=== PATIENT | male | born 1970 | race Caucasian/White ===

== ENCOUNTER 2020-01-05 14:11 | Emergency (ER) | payer OTHER, SELFPAY ==
--- NOTE | ~2020-01-05 | XR_ITS ---
EXAMINATION: XR ankle RT 2V INDICATION: Right lateral ankle pain TECHNIQUE: Two views of the right ankle are obtained. COMPARISON: 01/08/2017 FINDINGS: Mild osseous irregularity of the medial malleolus is chronic and consistent with prior inju ry. No acute fracture, dislocation, or subluxation is identified. Bone alignment is normal. The soft tissues are unremarkable. IMPRESSION: 1. No acute osseous abnormality. Reviewed, dictated and finalized at location A.
[2020-01-05 14:26] VITALS: BP 185/114; PULSE 105; RESP 14; TEMP 37.2; O2SAT 96
[2020-01-05] MEDS: KETOROLAC (*BKC) 60 MG/2 ML VIAL IM (14:39)
--- NOTE | 2020-01-05 14:52 | ED.LOWEXIN ---
HPI - Extremity Injury (Lower) General Chief Complaint: Extremity Injury, Lower Stated Complaint: injury to r ankle Source: patient Mode of arrival: ambulatory Limitations: no limitations History of Present Illness HPI Narrative: this is a 49-year-old male that presents with right ankle pain with swelling in the lateral aspect of his right ankle with mildly decreased range of motion secondary to swelling and pain. Occurred about an hour to ago after he stepped in a ditch in heard a pop in his right ankle. There is no numbness or tingling has a good brisk pedal pulse on the right. MD complaint: ankle injury Onset (ago): hour(s) Injury: Right: ankle ( with swelling and decreased range of motion) Type of Injury: inversion Place: street/outdoors Severity: moderate Severity scale (1-10): 6 Relieving factors: immobilization Exacerbating factors: movement and palpation Context: other ( stepped in a ditch) Associated symptoms: snap/pop sensation Other symptoms: none Related Data Allergies Allergy/AdvReac Type Severity Reaction Status Date / Time No Known Allergies Allergy Verified 01/05/20 14:33 Review of Systems Review of Systems: All systems reviewed & are unremarkable except as noted in HPI and below PMFSH Past Medical History Medical History Patient denies medical problems Exam Const: General: no acute distress and alert Orientation/consciousness: patient oriented x3 HENMT: Head: normal to inspection Eyes: Visual Thorne: normal visual thorne by confrontation Conjunctivae: conjunctivae normal Pupils: Equal, round and reactive pupils present EOM: EOMs intact bilaterally Neck: Neck: normal visual inspection Chest: Chest palpation & inspection: normal inspection of the chest Resp: Effort & Inspection: normal respiratory effort Auscultation: clear to auscultation bilaterally Cardio: Rate: regular rate Rhythm: regular rhythm GI: GI Palp: Yes Soft to palpation Back/Spine/Pelvis: Back: no CVA tenderness Skin: General skin exam: normal color Rashes: no rashes Neuro: General: patient oriented x3 and moves all extremities Extrem: General: normal to inspection Psych: Mental Status: mental status grossly normal Course Course Emergency Course: reassessment of pain, has decreased after IM injection of Toradol informed patient that there was no fracture and sprain of his right ankle and Ron wrap was applied. Vital Signs Vital signs: Vital Signs Temperature 37.2 C 01/05/20 14:26 Pulse Rate 105 H 01/05/20 14:26 Respiratory Rate 14 01/05/20 14:26 Blood Pressure 185/114 H 01/05/20 14:26 Pulse Oximetry 96 01/05/20 14:26 Temperature 37.2 C 01/05/20 14:26 Pulse Rate 105 H 01/05/20 14:26 Respiratory Rate 14 01/05/20 14:26 Blood Pressure 185/114 H 01/05/20 14:26 Pulse Oximetry 96 01/05/20 14:26 Critical Care Time Critical Care Time Critical Care Time: No Discharge Plan Discharge Clinical Impression: Ankle sprain and strain Patient Disposition: Home, Self-Care Condition: Stable Instructions: Antibiotic Form Additional Instructions: Follow-up with primary care physician in 1 week if symptoms persist. take medicine as prescribed. Prescriptions: New naproxen 500 mg tablet 500 mg PO BID Qty: 20 RF: 0 Follow-up/Referrals: Matty Avery MD [Primary Care Provider] - Time of Disposition: 14:56
[2020-01-05 15:30] VITALS: BP 163/102; O2SAT 98
== END 2020-01-05 15:25 | disposition home or self-care (01) ==
PROVIDERS: Emergency Provider Emergency Medicine; PCP Internal Medicine
DX: S93.401A Sprain of unspecified ligament of right ankle, initial encounter (principal)
CPT/HCPCS: 73600; 96372; 99283; J1885

== ENCOUNTER 2020-05-31 15:24 | Outpatient (CLI) | payer OTHER, SELFPAY ==
[2020-05-31 15:36] LABS: Basophils Absolute Auto 0.07 K/mm3 (0.00-0.10); Basophils Percent Auto 0.8 % (0.0-1.0); Eosinophils Absolute Auto 0.82 K/mm3 (0.02-0.50); Eosinophils Percent Auto 9.4 % (1.0-6.0); Hematocrit 45.6 % (40.0-54.0); Hemoglobin 15.3 g/dL (14.0-18.0); Immature Granulocyte Absolute 0.04 K/mm3 (0.00-0.00); Immature Granulocyte Percent A 0.5 % (0.0-0.0); Lymphocytes Percent Auto 22.9 % (18.0-42.0); Mean Corpuscular HGB Conc 33.6 g/dL (32.0-36.0); Mean Corpuscular Hemoglobin 29.8 pg (27.0-31.0); Mean Corpuscular Volume 88.7 fL (78.0-102.0); Mean Platelet Volume 8.8 fl (8.7-11.0); Monocytes Absolute Auto 0.65 K/mm3 (0.10-0.90); Monocytes Percent Auto 7.4 % (2.0-11.0); Neutrophils Absolute Auto 5.2 K/mm3 (1.7-7.2); Platelet Count Result 393 K/mm3 (150-420); Red Blood Count 5.14 M/mm3 (4.70-6.10); Red Cell Distribution Width 13.8 % (11.6-14.4); White Blood Count 8.7 K/mm3 (4.8-10.8)
[2020-05-31 15:37] LABS: Add Urine Microscopic? YES; Appearance Urine Clear (Clear); Bilirubin Urine Negative (Negative); Blood Urine 1+ (Negative); Color Urine Yellow (Yellow); Glucose Urine UA Negative (Negative); Ketones Urine Negative (Negative); Leukocyte Esterase Ur Negative (Negative); Nitrate Urine Negative (Negative); Protein Urine Negative (Negative); Urobilinogen Urine 0.2 mg/dL (0.2-1.0)
[2020-05-31 15:49] LABS: Bacteria Urine Trace /hpf; Squamous Epithelial Cell Urine Few /hpf (Few); WBC Urine None seen /hpf (0-3)
[2020-05-31 17:05] LABS: Alanine Aminotransferase 23 U/L (16-63); Albumin Level 4.1 g/dL (3.4-5.0); Alkaline Phosphatase 63 U/L (46-116); Anion Gap 6 mmol/L (8-16); Aspartate Amino Transferase 18 U/L (15-37); Bilirubin,Total 0.3 mg/dL (0.00-1.00); Blood Urea Nitrogen 15 mg/dL (7-18); Calcium 9.6 mg/dL (8.5-10.1); Carbon Dioxide 32 mmol/L (21-32); Chloride 100 mmol/L (98-108); Cholesterol 396 mg/dL (0-200); Estimated Glomerular Filt Rate > 60; Glucose 129 mg/dL (70-99); HDL Direct 32 mg/dL (40-60); Osmolality Calculated 288 mOsm/kg (285-295); Potassium 4.1 mmol/L (3.5-5.1); Sodium 138 mmol/L (136-145); Thyroid Stimulating Hormone 0.85 uIU/mL (0.36-3.74); Total Protein 7.5 g/dL (6.4-8.2)
[2020-05-31 17:15] LABS: LDL Cholesterol Calculated 171 mg/dL (<130); Triglycerides 965 mg/dL (0-150)
[2020-05-31 17:18] LABS: LDL Cholesterol Direct 146 mg/dL (0-130)
== END 2020-05-31 15:25 | disposition home or self-care (01) ==
LOC: CHSLAB 15:26
PROVIDERS: PCP Internal Medicine; Visit Provider Internal Medicine
DX: E78.5 Hyperlipidemia, unspecified (principal); I10 Essential (primary) hypertension
CPT/HCPCS: 36415; 80053; 80061; 81001; 83721; 84443; 85025

== ENCOUNTER 2020-06-15 16:05 | Outpatient (CLI) | payer OTHER, SELFPAY ==
--- NOTE | ~2020-06-15 | XR_ITS ---
XR lumbar spine 2-3V DATE: 06/15/2020 16:21 INDICATION: Chronic low back pain, radiating to right leg, increasing in severity TECHNIQUE: AP, lateral, coned lateral lumbosacral views COMPARISON: 08/29/2016 lumbar spine FINDINGS: There is diffuse osteopenia. Normal alignment of the lumbar spine. No fracture or bone destruction is evident. The included lower thoracic and lumbar pedicles are intact. There is degenerative spurring of the lower thoracic spine at T9-10 and T10-11. There is minimal dege nerative spurring of the lumbar spine. Lumbar and lumbosacral interspaces are relatively preserved. The sacroiliac joints are intact. Abdominal aortic calcification. 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
== END 2020-06-15 16:06 | disposition home or self-care (01) ==
PROVIDERS: PCP Internal Medicine; Visit Provider Internal Medicine
DX: M54.9 Dorsalgia, unspecified (principal)
CPT/HCPCS: 72100

== ENCOUNTER 2020-07-16 10:16 | Outpatient (CLI) | payer OTHER, SELFPAY ==
--- NOTE | ~2020-07-16 | CT_ITS ---
EXAMINATION: CT abdomen pelvis wo/w con EXAM DATE: 07/16/2020 11:16 INDICATION: Left renal cell CA s/p partial nephrectomy 2016 recent micro hematuria. TECHNIQUE: Spiral CT of the abdomen was performed without contrast. The patient was then injected wi th 100 mL intravenous Omnipaque 350, followed by post contrast scan abdomen and pelvis. A total of 10 0 cc intravenous contrast was administered. The dose-length product (DLP) for this examination was 1 361.73 mGy-cm. The exposure was tailored according to patient size (auto mA exposure control), and i terative reconstruction (ASIR) was used as additional dose reduction technique. Comparison is made to prior examination from 06/15/2015. FINDINGS: There are approximately 5 punctate right calyceal stones, and a single punctate left calyce al stone identified on the noncontrast study. There is mild left renal atrophy and there is scarring along the posterior lateral cortex at prior surgical site. This region of low density scarring is dec rease in size compared to previous exam, measuring 1.4 cm versus 2.0 centimeters on prior study. No f indings to suggest recurrence. The kidneys enhance symmetrically. There is a right renal cyst measur ing 4.5 cm. There are no suspicious renal lesions. The calyces and opacified portions of ureters are unremarkable, without filling defects or focal suspicious strictures. The bladder is unremarkable. There is mild prostatomegaly. The liver, spleen, adrenal glands and pancreas are unremarkable. Gallbladder is unremarkable. No bi liary obstruction. There is no retroperitoneal or pelvic lymphadenopathy. There is moderate scatte red arteriosclerotic disease. Small umbilical fat-containing hernia. Right lower quadrant scarring, c ould be prior ostomy site given patulous right lower quadrant ileal anastomosis. The appendix is normal. There is small sliding gastroesophageal hiatal hernia. There is mild sigmoid colonic diverticulosis. There is no adjacent inflammatory change to suggest diverticulitis. There i s expected amount of colonic stool. No free intraperitoneal gas. The heart is normal in size. Th ere are no pericardial or pleural effusions. The lung bases are unremarkable. Small sacral, L4 scle rotic foci are unchanged, likely bone islands. IMPRESSION: 1. Left renal cortical scarring. Mild atrophy. 2. Punctate bilateral nephrolithiasis. 3. Mild prostatomegaly. Reviewed, dictated and finalized at location A. [employer]
[2020-07-16 10:39] LABS: Estimated Glomerular Filt Rate > 60
== END 2020-07-16 10:17 | disposition home or self-care (01) ==
LOC: CHSIMG 10:19
PROVIDERS: PCP Internal Medicine; Visit Provider Internal Medicine
DX: C64.2 Malignant neoplasm of left kidney, except renal pelvis (principal)
CPT/HCPCS: 74178; Q9967

== ENCOUNTER 2020-11-25 21:07 | Emergency (ER) | payer OTHER, SELFPAY ==
[2020-11-25 21:19] VITALS: BP 208/113; PULSE 95; RESP 20; TEMP 36.7; O2SAT 100
[2020-11-25] MEDS: KETOROLAC (*BKC) 60 MG/2 ML VIAL IM (21:38)
[2020-11-25] MEDS: SUMAtriptan SUCCINATE 6 MG/0.5 ML VIAL SUB-Q (21:38)
[2020-11-25] MEDS: DEXAMETHASONE SOD PHOS INJ 4 MG/ML VIAL 12 MG IM (21:44)
--- NOTE | 2020-11-25 22:12 | ED.EYEPROB ---
HPI - Eye Problem General Chief complaint: Eye Problems Stated complaint: rt eye pain Time Seen by Provider: 11/25/20 21:25 Source: patient Mode of arrival: ambulatory Limitations: no limitations History of Present Illness HPI Narrative: Patient comes in with complaint of acute eye pain, a burning or stabbing in the right eye. This started yesterday pm, and has been ongoing today, becoming worse tonight in pain severity now /10. Vision has not been as clear in that eye as the left. He has had continual tearing and a runny nose. He has admitted to rubbing his eye. He had an episode today of diaphoresis prior to the onset of more acute severe eye pain. NO nausea, no emesis, no halos around lights, no severe clouding or hazing of vision. He has had ptosis on that side today, which is new, he states MD chief complaint: eye pain Onset (ago): hour(s) Onset description: sudden Duration: constant Location: right eye Eye Symptoms: burning and redness Place: home Mechanism: none Severity: severe Severity scale (1-10): 7 If Pain, Quality: sharp and burning Associated symptoms: none Related Data Home Medications Medication Instructions Recorded Confirmed alprazolam 0.5 mg PO QID PRN 01/05/20 11/25/20 fluoxetine [Prozac] 80 mg PO DAILY 01/05/20 11/25/20 ropinirole [Requip] 0.25 - 0.5 mg PO HS 01/05/20 11/25/20 zolpidem [Ambien] 10 mg PO HS 01/05/20 11/25/20 hydroxyzine pamoate 50 mg PO HS 11/25/20 11/25/20 lisinopril [Zestril] 10 mg PO DAILY 11/25/20 11/25/20 Allergies Allergy/AdvReac Type Severity Reaction Status Date / Time No Known Allergies Allergy Verified 01/05/20 14:33 Review of Systems Constitutional: Constitutional: Reports no additional constitutional complaints Eyes: Eyes: Reports photophobia Comments: Blurred vision on right compared to left ENT: Reports system reviewed and no additional complaints, except as documented Cardiovascular: Cardiovascular: Reports no additional cardiovascular complaints Respiratory: Respiratory: Reports no additional respiratory complaints Gastrointestinal: Gastrointestinal: Reports no additional gastrointestinal complaints Genitourinary: Genitourinary: Reports no additional male genitourinary complaints Musculoskeletal: Musculoskeletal: Reports no additional musculoskeletal complaints Integumentary/Breasts: Skin/Breast: Reports system reviewed and no additional complaints, except as docu Neurologic: Reports system reviewed and no additional complaints, except as documented Psychiatric: Psychiatric: Reports no additional psychiatric complaints Endocrine: Endocrine: Reports no additional endocrine complaints Hematologic/Lymphatic: Hematologic/Lymphatic: Reports no additional hematologic/lymphatic complaints Allergic/Immunologic: Allergic/Immunologic: Reports no additional allergic/immunologic complaints PMFSH Past Medical History Medical History (Updated 11/25/20 @ 23:56 by Lan Wyatt MD) Anxiety Depression Hyperlipemia Hypertension Patient denies medical problems Surgical History Surgical History (Updated 11/25/20 @ 22:15 by Lan Wyatt MD) History of bowel diversion surgery Family History Family History (Updated 11/25/20 @ 22:16 by Lan Wyatt MD) Father Heart disease Diabetes mellitus Mother Breast cancer Hypertension Social History Social History (Updated 11/25/20 @ 22:16 by Lan Wyatt MD) Smoking status: Never smoker Alcohol intake: never Substance use: never Gender identity (if verbalized by the patient): Male Sexual Orientation (if Verbalized by the Patient): Straight or Heterosexual Exam Const: General: alert Orientation/consciousness: patient oriented x3 Other: appears uncomfortable HENMT: Ears: external ears normal and TM's normal bilaterally General nose exam: Normal external nose present Mouth: Yes Normal oral and palatal mucosa present Throat: posterior oropharynx normal Eyes: Other: Ri
--- NOTE | 2020-11-25 22:34 | PC.NURSE ---
2200 O2 10L PER NONREBREATER MASK APPLIED BY DR AGUILERA
[2020-11-25 23:45] VITALS: TEMP 37.1
[2020-11-25] MEDS: FLUORESCEIN SOD 1 MG/STRIP EACH EYE (23:45)
[2020-11-25] MEDS: TETRACAINE HCL 0.5% OPHTH SOLN 4 ML BTL 1 DROP EACH EYE (23:45)
[2020-11-25] MEDS: DACRIOSE EYE IRRIGATION 118 ML BOTTLE EACH EYE (23:55)
[2020-11-26] MEDS: ERYTHROMYCIN OPHTH OINTMENT 3.5 GM TUBE 1 APPLIC RIGHT EYE (00:11)
[2020-11-26 00:18] VITALS: BP 168/101; PULSE 87; RESP 20; TEMP 37.1; O2SAT 98
== END 2020-11-26 00:19 | disposition home or self-care (01) ==
PROVIDERS: Emergency Provider Emergency Medicine; PCP Internal Medicine
DX: G44.009 Cluster headache syndrome, unspecified, not intractable (principal); S05.01XA Injury of conjunctiva and corneal abrasion without foreign body, right eye, initial encounter
CPT/HCPCS: 96372; 99283; 99284; A9270; J1100; J1885; J3030

== ENCOUNTER 2021-07-23 17:45 | Outpatient (CLI) | payer OTHER, SELFPAY ==
[2021-07-23 18:08] LABS: Hemoglobin A1C 6.3 % (<5.7)
[2021-07-23 18:47] LABS: Alanine Aminotransferase 26 U/L (16-63); Albumin Level 4.6 g/dL (3.4-5.0); Alkaline Phosphatase 72 U/L (46-116); Anion Gap 14 mmol/L (8-16); Aspartate Amino Transferase 16 U/L (15-37); Bilirubin,Total 0.8 mg/dL (0.00-1.00); Blood Urea Nitrogen 21 mg/dL (7-18); Calcium 10.1 mg/dL (8.5-10.1); Carbon Dioxide 28 mmol/L (21-32); Chloride 98 mmol/L (98-108); Cholesterol 271 mg/dL (0-200); Estimated Glomerular Filt Rate 54; Glucose 108 mg/dL (70-99); HDL Direct 41 mg/dL (40-60); LDL Cholesterol Calculated 207 mg/dL (<130); Osmolality Calculated 294 mOsm/kg (285-295); Potassium 4.4 mmol/L (3.5-5.1); Sodium 140 mmol/L (136-145); Total Protein 8.1 g/dL (6.4-8.2); Triglycerides 115 mg/dL (0-150)
== END 2021-07-23 17:46 | disposition home or self-care (01) ==
LOC: CHSLAB 17:47
PROVIDERS: PCP Internal Medicine; Visit Provider Internal Medicine
DX: R73.03 Prediabetes (principal); E78.5 Hyperlipidemia, unspecified
CPT/HCPCS: 36415; 80053; 80061; 83036

== ENCOUNTER 2022-03-25 10:47 | Observation (INO) | payer OTHER, SELFPAY ==
[2022-03-25] VITALS (18 sets, daily range): BP systolic 121–199; BP diastolic 79–136; PULSE 72–103; RESP 16–20; TEMP 36.6–36.7; O2SAT 99–100
--- NOTE | ~2022-03-25 | CT_ITS ---
EXAMINATION: CT abdomen pelvis wo con DATE: 03/25/2022 11:36 INDICATION: Upper abdominal pain radiating to the back. TECHNIQUE: Computed tomography (CT) of the abdomen and pelvis was performed without intravenous contr ast. Automated exposure control and iterative reconstruction technique were employed. The dose-length product was 284.32 mGy-cm. COMPARISON: CT abdomen and pelvis 07/16/2020 FINDINGS: The visualized portions of the lung bases are clear without pneumonia or pleural effusion. The heart size is normal. No pericardial effusion. There are coronary artery calcifications. There is a small sliding hiatal hernia. The liver, gallbladder, and spleen are normal. There is fat stranding around the head of the pancreas, consistent with acute interstitial pancreatitis. The adrenal glands are normal. There are cysts in right kidney measuring up to 4.5 cm. There is a 2 mm stone in right k idney. There are changes of partial left nephrectomy. There are 1 mm and 2 mm stones in left kidney. The prostate is mildly enlarged. There are no dilated loops of bowel. The appendix is normal. There a re no pathologically enlarged lymph nodes. There is no free intraperitoneal fluid. There is mild thor acolumbar spondylosis. There is mild chronic anterior wedging of T11 and T12 vertebral bodies. There is a benign bone island in L4 vertebral body. IMPRESSION: 1. Acute interstitial pancreatitis. Reviewed, dictated and finalized at location A. 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
--- NOTE | 2022-03-25 11:05 | PC.NURSE ---
ERP AT BEDSIDE
[2022-03-25] MEDS: SODIUM CHLORIDE 0.9% IV 1,000 ML 999 ML IV CONT (11:25)
[2022-03-25] MEDS: ONDANSETRON INJ 4 MG/2 ML VIAL IV PUSH (11:27)
[2022-03-25] MEDS: PANTOPRAZOLE SODIUM IV 40 MG VIAL IV PUSH (11:28)
[2022-03-25] MEDS: MORPHINE SULFATE (*CRX) 4 MG/ML INJ 2 MG IV PUSH (11:28)
[2022-03-25 11:30] LABS: Basophils Absolute Auto 0.04 K/mm3 (0.00-0.10); Basophils Percent Auto 0.3 % (0.0-1.0); Eosinophils Absolute Auto 0.25 K/mm3 (0.02-0.50); Hematocrit 50.2 % (40.0-54.0); Hemoglobin 16.7 g/dL (14.0-18.0); Immature Granulocyte Absolute 0.05 K/mm3 (0.00-0.00); Immature Granulocyte Percent A 0.4 % (0.0-0.0); Lymphocytes Percent Auto 11.3 % (18.0-42.0); Mean Corpuscular HGB Conc 33.3 g/dL (32.0-36.0); Mean Corpuscular Hemoglobin 29.1 pg (27.0-31.0); Mean Corpuscular Volume 87.6 fL (78.0-102.0); Mean Platelet Volume 8.7 fl (8.7-11.0); Monocytes Absolute Auto 0.65 K/mm3 (0.10-0.90); Monocytes Percent Auto 5.2 % (2.0-11.0); Neutrophils Percent Auto 80.8 % (50.0-70.0); Platelet Count Result 459 K/mm3 (150-420); Red Blood Count 5.73 M/mm3 (4.70-6.10); Red Cell Distribution Width 12.8 % (11.6-14.4); White Blood Count 12.4 K/mm3 (4.8-10.8)
--- NOTE | 2022-03-25 11:31 | PC.NURSE ---
CLONIDINE HELD AT THIS TIME DUE TO BP 156/95
--- NOTE | 2022-03-25 11:43 | ED.ABDPAIN ---
HPI - Abdominal Pain General Chief Complaint: Abdominal Pain Stated Complaint: abd pain/back pain Time Seen by Provider: 03/25/22 10:51 Source: patient and RN notes reviewed Mode of arrival: ambulatory Limitations: no limitations History of Present Illness MD elicited complaint: abdominal pain Pertinent past history: other (pancreatitis) Onset (ago): day(s) (2) Pain Consistency: constant Location: epigastric Severity: moderate Pain scale (0-10): 7 Quality: cramping and aching Radiation: back Migration to: no migration Exacerbating factors: nothing Relieving factors: nothing Associated symptoms: nausea, vomiting and diarrhea Related Data Home Medications Medication Instructions Recorded Confirmed alprazolam 1 mg tablet 0.5 mg PO QID PRN Anxiety 01/05/20 03/25/22 fluoxetine 40 mg capsule (Prozac) 80 mg PO DAILY 01/05/20 03/25/22 zolpidem 10 mg tablet (Ambien) 10 mg PO HS 01/05/20 03/25/22 lisinopril 10 mg tablet (Zestril) 10 mg PO DAILY 11/25/20 03/25/22 Allergies Allergy/AdvReac Type Severity Reaction Status Date / Time No Known Allergies Allergy Verified 03/25/22 10:58 Review of Systems Review of Systems: All systems reviewed & are unremarkable except as noted in HPI and below Constitutional: Constitutional: Reports no additional constitutional complaints Eyes: Eyes: Reports no additional eye complaints ENT: Reports system reviewed and no additional complaints, except as documented Cardiovascular: Cardiovascular: Reports no additional cardiovascular complaints Respiratory: Respiratory: Reports no additional respiratory complaints Gastrointestinal: Gastrointestinal: Reports abdominal pain Musculoskeletal: Musculoskeletal: Reports no additional musculoskeletal complaints Integumentary/Breasts: Skin/Breast: Reports system reviewed and no additional complaints, except as docu Neurologic: Reports system reviewed and no additional complaints, except as documented Psychiatric: Psychiatric: Reports no additional psychiatric complaints Endocrine: Endocrine: Reports no additional endocrine complaints Hematologic/Lymphatic: Hematologic/Lymphatic: Reports no additional hematologic/lymphatic complaints Allergic/Immunologic: Allergic/Immunologic: Reports no additional allergic/immunologic complaints [facility] Past Medical History Medical History Anxiety Depression Hyperlipemia Hypertension Pancreatitis Patient denies medical problems Surgical History Surgical History History of bowel diversion surgery Family History Family History Father Heart disease Diabetes mellitus Mother Breast cancer Hypertension Social History Social History Smoking status: Never smoker Second hand tobacco smoke exposure: No Alcohol intake: never Substance use: current Substance use type: marijuana Has the Lack of Transportation Kept You From Medical Appointments or From Getting Medications?: No Within the Past 12 Months, Were You Worried Whether Your Food Would Run Out Before You Got Money to Buy More?: Never True What is Your Housing Situation Today?: I Have Housing Are You Worried That in the Next 2 Months, You May Not Have Your Own Housing to Live In?: No Do You Have Trouble Paying Your Heating Or Electricity Bill?: No Do You Have Trouble Paying For Medicines?: No Are You Currently Unemployed and Looking for Work?: No Highest Level of Education Completed: High School Diploma/GED Do You Have Trouble With Childcare or the Care of a Family Member?: No Gender identity (if verbalized by the patient): Male Sexual Orientation (if Verbalized by the Patient): Straight or Heterosexual Spiritual care concerns: No Exam Const: General: no acute distress Nutritional Appearanc
[2022-03-25 11:46] LABS: Alanine Aminotransferase 34 U/L (16-63); Albumin Level 3.7 g/dL (3.4-5.0); Alkaline Phosphatase 78 U/L (46-116); Anion Gap 4 mmol/L (8-16); Aspartate Amino Transferase 19 U/L (15-37); Bilirubin,Total 0.3 mg/dL (0.00-1.00); Blood Urea Nitrogen 11 mg/dL (7-18); Carbon Dioxide 33 mmol/L (21-32); Chloride 101 mmol/L (98-108); Estimated CRCL calculation 66 ml/min; Estimated Glomerular Filt Rate > 60; Glucose 151 mg/dL (70-99); Lipase 167 U/L (73-393); Osmolality Calculated 288 mOsm/kg (285-295); Sodium 138 mmol/L (136-145); Total Protein 8.3 g/dL (6.4-8.2)
[2022-03-25 11:47] LABS: Ethanol 3 mg/dL (0-6)
[2022-03-25 11:49] LABS: Appearance Urine Clear (Clear); Bilirubin Urine Negative (Negative); Blood Urine 1+ (Negative); Glucose Urine UA Negative (Negative); Ketones Urine Negative (Negative); Leukocyte Esterase Ur Negative LEU/UL (Negative); Nitrate Urine Negative (Negative); Protein Urine Negative (Negative); Urobilinogen Urine 0.2 mg/dL (0.2-1.0)
[2022-03-25 11:53] LABS: Lactic Acid Reflex 2.1 mmol/L (0.4-2.0)
[2022-03-25 11:55] LABS: Calcium 10.1 mg/dL (8.5-10.1)
[2022-03-25 12:01] LABS: Amphetamine Screen Urine Negative (Negative); Barbiturate Screen Urine Negative (Negative); Benzodiazepines Screen Urine Negative (Negative); Cannabinoid Screen Urine Positive (Negative); Cocaine Screen Urine Negative (Negative); Methadone Screen Urine Negative (Negative); Opiate Screen Urine Negative (Negative); Phencyclidine Screen Urine Negative (Negative)
[2022-03-25 12:02] LABS: Add Urine Microscopic? YES; Bacteria Urine Trace /hpf; Color Urine Light Yellow (Yellow); Squamous Epithelial Cell Urine Rare /hpf (Few); WBC Urine None seen /hpf (0-3)
[2022-03-25] MEDS: MORPHINE SULFATE (*CRX) 2 MG/ML INJ IV PUSH ×2 (12:22→14:20)
--- NOTE | 2022-03-25 12:28 | PC.NURSE ---
PT REPORTED MINIMAL PAIN RELIEF WITH MEDICATION, REMAINS RESTLESS. ERP WAS NOTIFIED AND ANOTHER DOSE OF MEDICATION WAS ADMINISTERED. MOTHER AT BEDSIDE. IVF INFUSING ORDERED WITHOUT DIFFICULTY. WILL CONTINUE TO MONITOR.
--- NOTE | 2022-03-25 12:42 | PC.NURSE ---
ERP IS AWARE OF BP IS ELEVATED AGAIN, HE IS TO RE ORDER THE CLONIDINE. WILL CONTINUE TO MONITOR. PT IS AWAITING RETURN CALL FROM [facility] AT THIS TIME.
[2022-03-25] MEDS: cloNIDine HCL 0.2 MG TABLET PO ×2 (13:18→14:45)
--- NOTE | 2022-03-25 13:34 | PC.NURSE ---
PT IS AWAITING RETURN CALL FROM [facility]ITAL[facility] AT THIS TIME. MOTHER AT BEDSIDE. PT AND MOTHER ARE AWARE OF PLAN OF CARE. WILL CONTINUE TO MONITOR.
--- NOTE | 2022-03-25 14:21 | PC.NURSE ---
PT HAS BEEN ACCEPTED AND IS TO BE ADMITTED TO 204. PT AND MOTHER ARE AWARE OF PLAN OF CARE. PT IS EXTREMELY UNCOMFORTABLE, MEDICATION ADMINISTERED. WILL CONTINUE TO MONITOR.
[2022-03-25 14:28] LABS: Reflex Lactic Acid Yes or No Add Lactic
[2022-03-25] MEDS: ONDANSETRON HCL ODT 4 MG TABLET PO (14:45)
--- NOTE | 2022-03-25 14:48 | PC.NURSE ---
Patient admitted to unit via w/c and was able to transfer from w/c to bed independently. Patient oriented to hospital environment, bed controls, call light, television, and current visitor policies. Patient answered yes to first question on [place] screening. MINE BOSS notified of answer and patient denies any thoughts of suicide or self harm. Patient has no valuable belongings or meds at bedside.
[2022-03-25 15:07] LABS: Lactic Acid 1.4 mmol/L (0.4-2.0)
[2022-03-25] MEDS: HYDROmorphone HCL INJ (*CRX) 2 MG/ML VIAL 1 MG IV PUSH ×3 (15:23→23:28)
[2022-03-25] MEDS: SODIUM CHLORIDE 0.9% IV 1,000 ML 150 ML IV CONT ×2 (15:26→22:34)
[2022-03-25] MEDS: HYDROcodone/acetaminophen (*CRX) 5-325 MG TABLET 1 TAB PO (18:45)
[2022-03-25] MEDS: ZOLPIDEM TARTRATE (*CRX) 5 MG TABLET 10 MG PO (20:12)
[2022-03-26] VITALS (7 sets, daily range): BP systolic 102–151; BP diastolic 52–86; PULSE 61–89; RESP 15–20; TEMP 36–36.6; O2SAT 98–99
[2022-03-26] MEDS: SODIUM CHLORIDE 0.9% IV 1,000 ML 150 ML IV CONT (05:15)
[2022-03-26 05:23] LABS: Hematocrit 37.7 % (40.0-54.0); Hemoglobin 12.4 g/dL (14.0-18.0); Mean Corpuscular HGB Conc 32.9 g/dL (32.0-36.0); Mean Corpuscular Hemoglobin 29.5 pg (27.0-31.0); Mean Corpuscular Volume 89.8 fL (78.0-102.0); Mean Platelet Volume 8.6 fl (8.7-11.0); Platelet Count Result 362 K/mm3 (150-420); Red Cell Distribution Width 13.2 % (11.6-14.4); White Blood Count 9.5 K/mm3 (4.8-10.8)
[2022-03-26] MEDS: HYDROmorphone HCL INJ (*CRX) 2 MG/ML VIAL 1 MG IV PUSH (05:30)
[2022-03-26 05:38] LABS: Alanine Aminotransferase 20 U/L (16-63); Albumin Level 2.6 g/dL (3.4-5.0); Alkaline Phosphatase 50 U/L (46-116); Amylase 88 U/L (25-115); Anion Gap 3 mmol/L (8-16); Aspartate Amino Transferase 13 U/L (15-37); Bilirubin,Total 0.4 mg/dL (0.00-1.00); Blood Urea Nitrogen 10 mg/dL (7-18); CRP 3.3 mg/dL (0.0-0.9); Calcium 8.5 mg/dL (8.5-10.1); Carbon Dioxide 31 mmol/L (21-32); Chloride 104 mmol/L (98-108); Estimated CRCL calculation 75 ml/min; Estimated Glomerular Filt Rate > 60; Glucose 96 mg/dL (70-99); Lipase 321 U/L (73-393); Magnesium 1.4 mg/dL (1.8-2.4); Osmolality Calculated 285 mOsm/kg (285-295); Potassium 3.6 mmol/L (3.5-5.1); Sodium 138 mmol/L (136-145); Total Protein 5.9 g/dL (6.4-8.2)
[2022-03-26] MEDS: ENOXAPARIN 40 MG/0.4 ML SYRINGE SUB-Q (08:56)
[2022-03-26] MEDS: PANTOPRAZOLE SODIUM IV 40 MG VIAL IV PUSH (08:56)
[2022-03-26] MEDS: lisinopriL 10 MG TABLET PO (08:57)
[2022-03-26] MEDS: FLUoxetine HCL 20 MG CAPSULE 80 MG PO (08:57)
--- NOTE | 2022-03-26 09:10 | WPDPN ---
Subjective Date/time seen: 03/26/22 09:10 Interval history: Mr. Espinoza still a lot better today still having some discomfort according to patient. Patient will be started on clear liquids today. Discussed with patient whether or not we would discharge advised that we keep another day monitor him on food if labs continue to improve we will discharge him tomorrow. Objective Data Vital Signs Vital Signs: Vital Signs - 24 hr 03/25/22 10:49 03/25/22 11:10 03/25/22 11:30 Temperature 98.1 F Pulse Rate 103 H 98 Respiratory Rate 20 16 Blood Pressure 157/105 H 156/95 H Pulse Oximetry 100 99 Oxygen Delivery Room Air Room Air 03/25/22 11:27 03/25/22 11:28 03/25/22 11:40 Temperature Pulse Rate Respiratory Rate Blood Pressure 156/95 H Pulse Oximetry 100 100 100 Oxygen Delivery 03/25/22 11:44 03/25/22 11:45 03/25/22 11:46 Temperature Pulse Rate Respiratory Rate Blood Pressure 185/100 H 182/105 H Pulse Oximetry 100 100 100 Oxygen Delivery 03/25/22 12:00 03/25/22 12:01 03/25/22 12:16 Temperature Pulse Rate Respiratory Rate Blood Pressure 199/136 H 197/120 H Pulse Oximetry 100 100 Oxygen Delivery 03/25/22 12:17 03/25/22 14:22 03/25/22 14:18 Temperature 98.0 F 98.0 F Pulse Rate 98 81 Respiratory Rate 16 16 Blood Pressure 175/105 H 189/120 H Pulse Oximetry 100 100 100 Oxygen Delivery Room Air Room Air 03/25/22 13:57 03/25/22 16:00 03/25/22 16:00 Temperature 97.9 F Pulse Rate 81 76 81 Respiratory Rate 16 16 Blood Pressure 121/79 Pulse Oximetry 100 99 Oxygen Delivery Room Air Room Air 03/25/22 20:00 03/26/22 00:00 03/26/22 00:00 Temperature 96.8 F L Pulse Rate 72 72 72 Respiratory Rate 20 Blood Pressure 102/52 L Pulse Oximetry 98 Oxygen Delivery Room Air 03/26/22 03:56 03/26/22 08:00 Temperature 97.8 F Pulse Rate 67 72 Respiratory Rate 16 Blood Pressure 127/85 Pulse Oximetry 99 Oxygen Delivery Room Air Intake/Output Intake/Output: Intake & Output 03/23/22 03/24/22 03/25/22 03/26/22 23:59 23:59 23:59 23:59 Intake Total 2100 1000 Output Total 550 700 Balance 1550 300 Meds/Results Medications: Active Medications Generic Name Dose Route Start Last Admin Trade Name Freq PRN Reason Stop Dose Admin Acetaminophen 650 mg 03/25/22 13:55 Acetaminophen 325 Mg Tablet PO Q4H PRN Mild Pain (1-3) or Fever Hydrocodone Bitart/Acetaminophen 1 tab 03/25/22 13:55 03/25/22 18:45 Hydrocodone/Acetaminophen (*Crx) 5-325 Mg Tablet PO 1 tab Q4H PRN Administration Moderate Pain (4-6) Enoxaparin Sodium 40 mg 03/26/22 09:00 03/26/22 08:56 Enoxaparin 40 Mg/0.4 Ml Syringe SUB-Q 40 mg DAILY DAILY Administration Fluoxetine HCl 80 mg 03/26/22 09:00 03/26/22 08:57 Fluoxetine Hcl 20 Mg Capsule PO 80 mg DAILY DAILY Administration Hydromorphone HCl 1 mg 03/25/22 13:55 03/26/22 05:30 Hydromorphone Hcl Inj (*Crx) 2 Mg/Ml Vial IV PUSH 1 mg Q4HR PRN Administration Pain Rated 7-10 Sodium Chloride 1,000 mls @ 150 mls/hr 03/25/22 13:55 03/26/22 05:15 Normal Saline Iv IV CONT 150 mls/hr .Q6H40M DAILY Administration Lisinopril 10 mg 03/26/22 09:00 03/26/22 08:57 Lisinopril 10 Mg Tablet PO 10 mg DAILY DAILY Administration Loperamide HCl 2 mg 03/25/22 17:19 Loperamide Hcl 2 Mg Capsule PO PRN PRN Diarrhea Ondansetron HCl 4 mg 03/25/22 13:55 Ondansetron Inj 4 Mg/2 Ml Vial IV PUSH Q6H PRN Nausea And Vomiting Pantoprazole Sodium 40 mg 03/26/22 09:00 03/26/22 08:56 Pantoprazole Sodium Iv 40 Mg Vial IV PUSH 40 mg DAILY DAILY Administration Zolpidem Tartrate 10 mg 03/25/22 21:00 03/25/22 20:12 Zolpidem Tartrate (*Crx) 5 Mg Tablet PO 10 mg HS DAILY Administration Radiology Results: ITS Impressions Abdomen/Pelvis CT 03/25/22 11:41 IMPRESSION: 1. Acute interstitial pancreatitis.
--- NOTE | 2022-03-26 09:17 | PM.IMHP ---
H&P: HPI History of Present Illness Date/Time: 03/26/22 09:17 Chief Complaint: abdominal pain , Pancretitis Narrative: this is a 51-year-old male that presents to the emergency room after 2 days of severe abdominal pain with a past medical history of pancreatitis, hyperlipidemia, depression, cancer, anxiety , hypertension. On arrival patient's vitals 157/105, pulse of 103, respirations 20, temp 9.7 100% on room air patient's white blood count 12.4 hemoglobin stable 12.4 hematocrit 37.7, platelets 362, sodium 138, potassium 3.6, BUN 10 creatinine 0.9 the emergency room he received pain medication IV antibiotics and IV fluids. CT scan showed acute interstitial pancreatitis. Mr. Espinoza lipase was within normal limits severe abdominal pain with palpitation today he has tenderness in his upper epigastric area he has remained NPO we will start clear liquids today to see if he is able tolerate no masses tolerating. Review of Systems Review of Systems: Nausea vomiting, abdomen pain epigastric All systems reviewed & are unremarkable except as noted in HPI and below PMFSH Past Medical History Medical History (Updated 03/26/22 @ 09:19 by Singh Layne NP) Anxiety Depression Hyperlipemia Hypertension Pancreatitis Patient denies medical problems Surgical History Surgical History History of bowel diversion surgery Family History Family History Father Heart disease Diabetes mellitus Mother Breast cancer Hypertension Social History Social History Smoking status: Never smoker Second hand tobacco smoke exposure: No Alcohol intake: never Substance use: current Substance use type: marijuana Lack of Transportation: No Lack of Food: Never True Current Housing: I Have Housing Concerned About Future Housing: No Difficulty Paying Gas/Electric Bills: No Difficulty Paying for Meds: No Currently Unemployed: No Education: High School Diploma/GED Difficulty w/ Childcare or Family Care: No Gender identity (if verbalized by the patient): Male Sexual Orientation (if Verbalized by the Patient): Straight or Heterosexual Spiritual care concerns: No Comments At time as signature, I have reviewed and agree with nursing past medical, social, surgical and family history. Please see nursing chart for further information. There is no relevant family history pertinent to the presenting complaint. Meds Home Medications and Allergies Home Medications Medication Instructions Recorded Confirmed Type alprazolam 1 mg tablet 0.5 mg PO QID PRN Anxiety 01/05/20 03/25/22 History fluoxetine 40 mg capsule (Prozac) 80 mg PO DAILY 01/05/20 03/25/22 History zolpidem 10 mg tablet (Ambien) 10 mg PO HS 01/05/20 03/25/22 History lisinopril 10 mg tablet (Zestril) 10 mg PO DAILY 11/25/20 03/25/22 History pantoprazole 20 mg tablet,delayed 20 mg PO QAM #10 tabs 03/27/22 Rx release (Protonix) Allergies Allergy/AdvReac Type Severity Reaction Status Date / Time No Known Allergies Allergy Verified 03/25/22 10:58 Vital Signs Vital Signs - 24 hr 03/25/22 10:49 03/25/22 11:10 03/25/22 11:30 Temperature 98.1 F Pulse Rate 103 H 98 Respiratory Rate 20 16 Blood Pressure 157/105 H 156/95 H Pulse Oximetry 100 99 Oxygen Delivery Room Air Room Air 03/25/22 11:27 03/25/22 11:28 03/25/22 11:40 Temperature Pulse Rate Respiratory Rate Blood Pressure 156/95 H Pulse Oximetry 100 100 100 Oxygen Delivery 03/25/22 11:44 03/25/22 11:45 03/25/22 11:46 Temperature Pulse Rate Respiratory Rate Blood Pressure 185/100 H 182/105 H Pulse Oximetry 100 100 100 Oxygen Delivery 03/25/22 12:00 03/25/22 12:01 03/25/22 12:16 Temperature Pulse Rate Respiratory Rate Blood Pressure 199/136 H 197/120 H
[2022-03-26] MEDS: HYDROcodone/acetaminophen (*CRX) 5-325 MG TABLET 1 TAB PO (13:53)
[2022-03-26] MEDS: traMADol HCL (*CRX) 50 MG TABLET PO (15:56)
[2022-03-26] MEDS: ZOLPIDEM TARTRATE (*CRX) 5 MG TABLET 10 MG PO (20:42)
[2022-03-27] MEDS: HYDROcodone/acetaminophen (*CRX) 5-325 MG TABLET 1 TAB PO (04:57)
[2022-03-27 08:00] VITALS: BP 170/98; PULSE 78; RESP 16; TEMP 36.1; O2SAT 100
[2022-03-27 08:42] LABS: Hematocrit 47.9 % (40.0-54.0); Mean Corpuscular HGB Conc 33.4 g/dL (32.0-36.0); Mean Corpuscular Hemoglobin 29.1 pg (27.0-31.0); Mean Corpuscular Volume 87.1 fL (78.0-102.0); Mean Platelet Volume 8.4 fl (8.7-11.0); Platelet Count Result 428 K/mm3 (150-420); Red Cell Distribution Width 12.5 % (11.6-14.4); White Blood Count 10.2 K/mm3 (4.8-10.8)
[2022-03-27] MEDS: ENOXAPARIN 40 MG/0.4 ML SYRINGE SUB-Q (08:47)
[2022-03-27] MEDS: PANTOPRAZOLE 40 MG TABLET PO (08:48)
[2022-03-27] MEDS: lisinopriL 10 MG TABLET PO (08:48)
[2022-03-27] MEDS: FLUoxetine HCL 20 MG CAPSULE 80 MG PO (08:48)
[2022-03-27 08:54] LABS: Anion Gap 6 mmol/L (8-16); Blood Urea Nitrogen 11 mg/dL (7-18); Calcium 9.6 mg/dL (8.5-10.1); Carbon Dioxide 32 mmol/L (21-32); Chloride 100 mmol/L (98-108); Estimated CRCL calculation 66 ml/min; Estimated Glomerular Filt Rate > 60; Glucose 188 mg/dL (70-99); Osmolality Calculated 290 mOsm/kg (285-295); Potassium 3.8 mmol/L (3.5-5.1); Sodium 138 mmol/L (136-145)
--- NOTE | 2022-03-27 09:40 | PM.DS ---
DS: Admitting Diagnosis Discharge Date 03/27/2022 Admitting Diagnosis Pancreatitis DS: Discharge Diagnosis Discharge Diagnosis (1) Pancreatitis: Code(s): K85.90 - Acute pancreatitis without necrosis or infection, unspecified Status: Acute Assessment and Plan: Lipase 361 abdominal pain /pressure denies nausea tolerates clear liquids at this time continue to monitor (2) Hypertension: Code(s): I10 - Essential (primary) hypertension Status: Acute Assessment and Plan: continue home medication monitor blood pressure will adjust medication accordingly blood pressure elevated today will need his morning medication and recheck blood pressure prior to discharge (3) Anxiety: Code(s): F41.9 - Anxiety disorder, unspecified Status: Acute Assessment and Plan: administer prn medication as needed (4) Hyperlipemia: Code(s): E78.5 - Hyperlipidemia, unspecified Status: Acute Assessment and Plan: stable continue home medication DS: Summary Hospital Course Reason for hospitalization: Pancreatitis Hospital Course: this is a 51-year-old male that was admitted to the hospital for pancreatitis with severe abdominal pain that was happening for approximately 2 days prior to arrival patient has received since he has been inpatient IV medication IV antibiotics as well as IV pain medication. Patient's pain has since started to resolve he has been a been able to eat and drink without any difficulties no nausea vomiting and/or diarrhea. Patient's labs today with potassium was 3.8 sodium, 138, BUN 11, creatinine 1.05, RBCs 5.50, WBC is 10.2, hemoglobin is 16, hemoclip is 47.9, platelets are 428. Mr. Landy busby blood pressure slightly elevated he has not had his morning medications we will recheck blood pressure prior to his discharge patient is anxiously anticipating discharge as he feels very well states that he is ready to go home lipase was not repeated as it was never elevated recheck twice patient has follow-up with his primary care provider within the next week. Time Spent with Patient Time attestation: Total time spent providing and/or coordinating discharge services: Exam Narrative: GENERAL:Pale well-nourished, and in no acute distress. HEAD:Normocephalic, EYES: PERRLA and EOMI. ENT: Nares clear, no rhinorrhea or epistaxis. Mucous membranes moist. CHEST: Clear to auscultation. No respiratory distress. HEART: Regular rate and rhythm. . Normal peripheral pulses. ABDOMEN: Soft, nontender , nondistended, normal active bowel sounds. EXTREMITIES: Normal range of motion. No edema. SKIN: Warm, dry, no rash. NEURO: No focal deficits. Alert and oriented x3. DS: Data Data Completed and Pending Labs on day of discharge: Labs from last 24 hours 03/27/22 03/27/22 08:33 08:33 WBC 10.2 RBC 5.50 Hgb 16.0 Hct 47.9 MCV 87.1 MCH 29.1 MCHC 33.4 RDW 12.5 Plt Count 428 H MPV 8.4 L Sodium 138 Potassium 3.8 Chloride 100 Carbon Dioxide 32 Anion Gap 6 L BUN 11 Creatinine 1.05 Estim Creat Clear Calc 66 Estimated GFR > 60 Glucose 188 H Calculated Osmolality 290 Calcium 9.6 Discharge Plan Discharge Attending physician on discharge: Wallace Schwartz Discharging Clinician: Singh Layne Anticipated Discharge Date/Time: 03/27/22 09:36 Patient Disposition: Home, Self-Care Activity: may shower and unlimited Diet: as tolerated Wound Care Instructions: follow printed instructions Discharge Instructions: You need to watch what you are eating low fat foods avoid Alcohol Patient Instructions: Antibiotic Form, Pantoprazole (By mouth), Pancreatitis (DC), Abdominal Pain (DC), Fall Prevention (DC) Stand Alone Forms: General Discharge Information, Work/School Release IP Follow-up/Referrals: Matty Avery MD [Primary Care Provider] - 04/04/22 11:00 am () Discharge Medic
--- NOTE | 2022-03-27 10:53 | PC.NURSE ---
Pt discharged to home with VSS. Pt denies any abdominal pain, Nausea or vomiting. Pt has been eating a Low fat diet with no problems. RN reviewed the discharge instructions with pr. New medications, follow up appointment with PCP and S&S to report to the PCP. Pt verballizes understanding.
--- NOTE | 2022-03-31 09:31 | PC.NURSE ---
Invalid phone number for discharge call back.
== END 2022-03-27 10:30 | disposition home or self-care (01) ==
LOC: CHSED 11:58 → CHS2ND 14:19
PROVIDERS: Nurse Practitioner; Nurse Practitioner Family; Admitting Provider Internal Medicine; Emergency Provider Emergency Medicine; PCP Internal Medicine; Visit Provider Internal Medicine
DX: K85.80 Other acute pancreatitis without necrosis or infection (principal); E78.5 Hyperlipidemia, unspecified; I10 Essential (primary) hypertension; F32.A Depression, unspecified; F41.9 Anxiety disorder, unspecified; Z79.899 Other long term (current) drug therapy
CPT/HCPCS: 36415; 74176; 80048; 80053; 80307; 81001; 82150; 83605; 83690; 83735; 85025; 85027; 86140; 96361; 96372; 96374; 96375; 96376; 99285; A9270; C9113; G0378; G0379; J1170; J1650; J2270; J2405; J7030

== ENCOUNTER 2023-07-30 10:36 | Observation (INO) | payer OTHER, SELFPAY ==
[2023-07-30] VITALS (36 sets, daily range): BP systolic 107–157; BP diastolic 67–117; PULSE 60–126; RESP 16–36; TEMP 36.1–37.1; O2SAT 85–100
--- NOTE | ~2023-07-30 | CT_ITS ---
EXAMINATION: CTA chest PE protocol DATE: 07/30/2023 12:23 INDICATION: Shortness of breath. TECHNIQUE: Computed tomography angiography (CTA) of the chest was performed with 100 mL Omnipaque-350 intravenous contrast timed to evaluate the pulmonary arteries. Coronal maximum intensity projection 3D-reconstructions were created by the technologist. Automated exposure control and iterative reconst ruction technique were employed. The dose-length product was 542.81 mGy-cm. COMPARISON: CT abdomen and pelvis 03/25/2022 FINDINGS: There is smooth septal thickening in the lungs bilaterally. There are patchy groundglass op acities in the lungs. There is a small right pleural effusion. Cardiomegaly is noted. There are coron nasir artery calcifications. There is no pulmonary embolus. There is a 5.2 cm cyst in right kidney. The re are changes of partial left nephrectomy. Aortic atherosclerosis is noted. There is severe thoracic spondylosis. IMPRESSION: 1. No pulmonary embolus. 2. Moderate pulmonary edema. 3. Small right pleural effusion. Reviewed, dictated and finalized at location A.
--- NOTE | ~2023-07-30 | XR_ITS ---
EXAMINATION: XR chest 1V portable DATE: 07/30/2023 11:11 INDICATION: Dyspnea TECHNIQUE: frontal view of the chest was obtained. COMPARISON: Chest radiograph dated 06/12/2017 FINDINGS: Mild airspace opacities in the right lower lung zone. No pleural effusion or pneumothorax. The cardio mediastinal silhouette is within normal limits for AP technique. Mild S-shaped curvature of the thora cic spine. IMPRESSION: 1. Mild opacities in the right lower lung zone concerning for pneumonia with differential including a telectasis and mild pulmonary edema Reviewed, dictated and finalized at location L. IMPRESSION: 1. Mild opacities in the right lower lung zone concerning for pneumonia with di fferential including atelectasis and mild pulmonary edema
--- NOTE | 2023-07-30 10:45 | ECG_ITS ---
Measurements Intervals [place] Rate: 104 P: 76 [place]: 161 QRS: 110 QRSD: 78 T: 56 QT: 349 QTc: 460 Interpretive Statements SINUS TACHYCARDIA RIGHT AXIS DEVIATION CANNOT RULE OUT SEPTAL INFARCT, AGE INDETERMINATE NONSPECIFIC T-WAVE ABNORMALITY- INFERIOR LEADS ABNORMAL ECG NO PREVIOUS ECG AVAILABLE FOR COMPARISON Electronically Signed On 07-30-2023 11:21:29 CDT by Darnell Arzate D.O.
[2023-07-30 11:11] LABS: Basophils Absolute Auto 0.05 K/mm3 (0.00-0.10); Basophils Percent Auto 0.5 % (0.0-1.0); Eosinophils Absolute Auto 0.06 K/mm3 (0.02-0.50); Eosinophils Percent Auto 0.6 % (1.0-6.0); Hematocrit 41.2 % (40.0-54.0); Hemoglobin 13.2 g/dL (14.0-18.0); Immature Granulocyte Absolute 0.03 K/mm3 (0.00-0.00); Immature Granulocyte Percent A 0.3 % (0.0-0.0); Lymphocytes Absolute Auto 2.11 K/mm3 (1.10-4.50); Lymphocytes Percent Auto 21.9 % (18.0-42.0); Mean Corpuscular Hemoglobin 27.7 pg (27.0-31.0); Mean Corpuscular Volume 86.4 fL (78.0-102.0); Mean Platelet Volume 9.3 fl (8.7-11.0); Monocytes Absolute Auto 0.65 K/mm3 (0.10-0.90); Monocytes Percent Auto 6.8 % (2.0-11.0); Neutrophils Absolute Auto 6.72 K/mm3 (1.70-7.20); Neutrophils Percent Auto 69.9 % (50.0-70.0); Platelet Count Result 457 K/mm3 (150-420); Red Blood Count 4.77 M/mm3 (4.70-6.10); Red Cell Distribution Width 14.4 % (11.6-14.4); White Blood Count 9.6 K/mm3 (4.8-10.8)
[2023-07-30 11:27] LABS: INR 1.4; Partial Thromboplastin Time 26.3 Sec (23.9-30.70); Prothrombin Time 14.5 Seconds (9.50-12.1)
[2023-07-30 11:31] LABS: Lactic Acid Reflex 2.1 mmol/L (0.4-2.0)
[2023-07-30] MEDS: ALPRAZolam (*CRX) 0.5 MG TABLET PO ×2 (11:36→16:16)
[2023-07-30 11:41] LABS: D Dimer 0.71 mg/L (0.19-0.50)
[2023-07-30 11:52] LABS: Influenza A QL RT-PCR Negative (Negative); Influenza B QL RT-PCR Negative (Negative); RSV RNA, RT-PCR Negative (Negative); SARS-CoV-2 RNA PCR Negative (Negative)
[2023-07-30 11:57] LABS: Alanine Aminotransferase 117 U/L (16-63); Albumin Level 3.4 g/dL (3.4-5.0); Alkaline Phosphatase 69 U/L (46-116); Anion Gap 12 mmol/L (8-16); Aspartate Amino Transferase 84 U/L (15-37); Bilirubin,Total 1.6 mg/dL (0.00-1.00); Blood Urea Nitrogen 19 mg/dL (7-18); Calcium 8.7 mg/dL (8.5-10.1); Carbon Dioxide 28 mmol/L (21-32); Chloride 97 mmol/L (98-108); Estimated CRCL calculation 57 ml/min; Estimated Glomerular Filt Rate 56; Glucose 158 mg/dL (70-99); NT Pro B Type Natriuretic Pept 15981 pg/mL (0-125); Osmolality Calculated 289 mOsm/kg (285-295); Potassium 3.8 mmol/L (3.5-5.1); Sodium 137 mmol/L (136-145); Total Protein 6.8 g/dL (6.4-8.2)
[2023-07-30] MEDS: FUROSEMIDE INJ 40 MG/4 ML VIAL IV PUSH (12:08)
[2023-07-30 12:13] LABS: Troponin I 50.2 ng/L (0.00-60.4)
[2023-07-30 14:09] LABS: Reflex Lactic Acid Yes or No Add Lactic
--- NOTE | 2023-07-30 14:22 | ED.SOB ---
HPI - SOB/Dyspnea General Chief Complaint: Shortness of Breath/Dyspnea Stated Complaint: breathing issues; anxiety Time Seen by Provider: 07/30/23 10:44 Source: patient and family Mode of arrival: ambulatory Limitations: no limitations History of Present Illness HPI Narrative: this is a 53-year-old male that presents with 4 day dyspnea on exertion with orthopnea and paroxysmal nocturnal dyspnea, has a history of hypertension and anxiety but has not seen his physician in over a year and has not been on any of his medications for about a year. Patient denies chest pain no abdominal pain no flank pain no dysuria no hematuria no fever chills. MD elicited complaint: shortness of breath Pertinent past history: other Onset (ago): day(s) Context: anxiety Timing: constant Severity: moderate Exacerbating factors: lying flat and exertion Related Data Home Medications Medication Instructions Recorded Confirmed alprazolam 1 mg tablet 0.5 mg PO QID PRN Anxiety 01/05/20 03/25/22 fluoxetine 40 mg capsule (Prozac) 80 mg PO DAILY 01/05/20 03/25/22 zolpidem 10 mg tablet (Ambien) 10 mg PO HS 01/05/20 03/25/22 lisinopril 10 mg tablet (Zestril) 10 mg PO DAILY 11/25/20 03/25/22 Allergies Allergy/AdvReac Type Severity Reaction Status Date / Time No Known Allergies Allergy Verified 07/30/23 10:45 Review of Systems Review of Systems: All systems reviewed & are unremarkable except as noted in HPI and below PMFSH Past Medical History Medical History Anxiety Depression Hyperlipemia Hypertension Pancreatitis Patient denies medical problems Surgical History Surgical History History of bowel diversion surgery Family History Family History Father Heart disease Diabetes mellitus Mother Breast cancer Hypertension Social History Social History Smoking status: Never smoker Second hand tobacco smoke exposure: No Alcohol intake: never Substance use: current Substance use type: marijuana Lack of Transportation: No Lack of Food: Never True Current Housing: I Have Housing Concerned About Future Housing: No Difficulty Paying Gas/Electric Bills: No Difficulty Paying for Meds: No Currently Unemployed: No Education: High School Diploma/GED Difficulty w/ Childcare or Family Care: No Gender identity (if verbalized by the patient): Male Sexual Orientation (if Verbalized by the Patient): Straight or Heterosexual Spiritual care concerns: No Exam Const: General: no acute distress Nutritional Appearance: thin Orientation/consciousness: patient oriented x3 Limitations: no limitations HENMT: Head: normal to inspection Neck: Neck: normal visual inspection, no lymphadenopathy and no meningeal signs Chest: Chest palpation & inspection: normal inspection of the chest Resp: Effort & Inspection: normal respiratory effort Auscultation: clear to auscultation bilaterally Cardio: Rate: regular rate Rhythm: regular rhythm GI: GI Palp: Yes Soft to palpation Auscultation: normal bowel sounds : General: Yes bladder normal to palpation Urinary Catheter: Urinary Catheter: patent and draining Back/Spine/Pelvis: Back: no CVA tenderness Skin: General skin exam: normal color Rashes: no rashes Neuro: General: patient oriented x3, moves all extremities and no meningeal signs Extrem: General: normal to inspection, no clubbing, cyanosis or edema and no pedal edema Psych: Mental Status: mental status grossly normal Affect: Anxious affect present Course Course Emergency Course: Patient with shortness of breath and elevated D-dimer and elevated BNP, BNP around 15,900 did receive a dose of Lasix IV. D-dimer elevated had a CTA which showed no pulmonary embolism but it showed moderate
[2023-07-30 15:00] LABS: Troponin I 49.8 ng/L (0.00-60.4)
[2023-07-30 15:06] LABS: Lactic Acid 1.7 mmol/L (0.4-2.0)
[2023-07-30] MEDS: AZITHROMYCIN 500 MG/NS 250 ML 500 MG/250 ML BAG 250 MG IVPB (15:07)
--- NOTE | 2023-07-30 22:46 | PC.NURSE ---
Admission Note: 53 year old male admitted via wheelchair from ER with new onset of CHF and pneumonia. Patient is alert and able to make needs known. Patient denies pain, SOB, anxiety. Patient has history of anxiety. Patient lives with significant other and his 20 year old son. Patient had onset of SOB which caused increased anxiety. Patient had cancer of kidney and had part of his kidney removed. Patient is pleasant and cooperative. Patient instructed on routine of the floor. Call light within reach.
--- NOTE | 2023-07-30 23:50 | PC.NURSE ---
Pt given ambien 10 mg and lasix 20 mg IVP as ordered.
[2023-07-30] MEDS: ZOLPIDEM TARTRATE (*CRX) 5 MG TABLET 10 MG PO (23:52)
[2023-07-30] MEDS: FUROSEMIDE INJ 20 MG/2 ML VIAL IV PUSH (23:53)
[2023-07-31] VITALS (11 sets, daily range): BP systolic 113–145; BP diastolic 74–115; PULSE 67–104; RESP 16–20; TEMP 36–36.5; O2SAT 91–99
[2023-07-31] MEDS: ALPRAZolam (*CRX) 0.5 MG TABLET PO ×3 (00:10→20:58)
--- NOTE | 2023-07-31 00:10 | PC.NURSE ---
Pt given xanax 0.5 mg PO per his request for restlessness.
--- NOTE | 2023-07-31 02:35 | PC.NURSE ---
850 ml of clear, yellow urine emptied from urinal
--- NOTE | 2023-07-31 04:20 | PC.NURSE ---
Pt asleep and no signs of shortness of breath noted.
[2023-07-31 05:31] LABS: Basophils Absolute Auto 0.08 K/mm3 (0.00-0.10); Basophils Percent Auto 0.8 % (0.0-1.0); Eosinophils Absolute Auto 0.17 K/mm3 (0.02-0.50); Eosinophils Percent Auto 1.7 % (1.0-6.0); Hematocrit 41.7 % (40.0-54.0); Hemoglobin 13.4 g/dL (14.0-18.0); Immature Granulocyte Absolute 0.03 K/mm3 (0.00-0.00); Immature Granulocyte Percent A 0.3 % (0.0-0.0); Lymphocytes Absolute Auto 2.98 K/mm3 (1.10-4.50); Lymphocytes Percent Auto 29.2 % (18.0-42.0); Mean Corpuscular HGB Conc 32.1 g/dL (32-36); Mean Corpuscular Hemoglobin 27.7 pg (27.0-31.0); Mean Corpuscular Volume 86.3 fL (78.0-102.0); Mean Platelet Volume 9.4 fl (8.7-11.0); Monocytes Percent Auto 6.9 % (2.0-11.0); Neutrophils Absolute Auto 6.25 K/mm3 (1.70-7.20); Neutrophils Percent Auto 61.1 % (50.0-70.0); Platelet Count Result 439 K/mm3 (150-420); Red Blood Count 4.83 M/mm3 (4.70-6.10); Red Cell Distribution Width 14.6 % (11.6-14.4); White Blood Count 10.2 K/mm3 (4.8-10.8)
[2023-07-31 05:58] LABS: Alanine Aminotransferase 105 U/L (16-63); Albumin Level 3.1 g/dL (3.4-5.0); Alkaline Phosphatase 73 U/L (46-116); Anion Gap 10 mmol/L (8-16); Aspartate Amino Transferase 62 U/L (15-37); Bilirubin,Total 0.9 mg/dL (0.00-1.00); Blood Urea Nitrogen 24 mg/dL (7-18); Calcium 8.4 mg/dL (8.5-10.1); Carbon Dioxide 30 mmol/L (21-32); Chloride 99 mmol/L (98-108); Estimated CRCL calculation 50 ml/min; Estimated Glomerular Filt Rate 47; Glucose 111 mg/dL (70-99); NT Pro B Type Natriuretic Pept 13016 pg/mL (0-125); Osmolality Calculated 293 mOsm/kg (285-295); Potassium 3.4 mmol/L (3.5-5.1); Sodium 139 mmol/L (136-145); Total Protein 6.5 g/dL (6.4-8.2)
--- NOTE | 2023-07-31 06:10 | PC.NURSE ---
Pt asleep and no signs of discomfort noted.
[2023-07-31] MEDS: POTASSIUM CHLORIDE 20 MEQ ER TABLET 40 MEQ PO (07:15)
--- NOTE | 2023-07-31 07:15 | PC.NURSE ---
Pt given potassium chloride 40 meq PO as ordered.
--- NOTE | 2023-07-31 08:00 | ECHO_ITS ---
Patient Info Name: Roly Espinoza Age: 53 years : 1970 Gender: Male Heart Rhythm: Sinus Rhythm Technical Quality: Good Exam Date: 07/31/2023 10:24 AM Exam Location: Echo Lab Patient Status: Inpatient Admit Date: 07/30/2023 Staff Ordering Physician: Max Kingsley APRN Medical Services Coordinator: Jace Lakhani RDCS Attending Provider: Wallace Schwartz MD Exam Type: CA echo doppler color flow Study Info Complete two-dimensional, color flow and Doppler transthoracic echocardiogram is performed. Summary 1. Complete two-dimensional, color flow and Doppler transthoracic echocardiogram is performed. 2. Left ventricular chamber dimension is severely enlarged. 3. Left ventricular systolic function is severely reduced, estimated at 30-35%. 4. The left ventricular diastolic function is abnormal. 5. E/e' 26 is significantly elevated. 6. Left atrial chamber dimension is moderately enlarged. 7. Right atrial chamber dimension is mildly enlarged. 8. There is moderate mitral valve regurgitation. 9. There is mild to moderate tricuspid valve regurgitation. 10. Mild pulmonary hypertension, estimated pulmonary arterial systolic pressure is 43 mmHg. 11. There is trace pulmonic regurgitation. Left Ventricle E/e' 26 is significantly elevated. Left ventricular chamber dimension is severely enlarged. Left ventricular systolic function is severely reduced, estimated at 30-35%. The left ventricular diastolic function is abnormal. Right Ventricle Right ventricular systolic function is normal and with normal TAPSE 1.8 cm. Right ventricular chamber dimension is normal. Left Atria Left atrial chamber dimension is moderately enlarged. Right Atria Right atrial chamber dimension is mildly enlarged. Aortic Valve The aortic valve is trileaflet. There is no aortic valve stenosis. There is no aortic valve regurgitation. Pulmonic Valve There is trace pulmonic regurgitation. Mitral Valve There is no mitral valve stenosis. There is moderate mitral valve regurgitation. Tricuspid Valve There is mild to moderate tricuspid valve regurgitation. Mild pulmonary hypertension, estimated pulmonary arterial systolic pressure is 43 mmHg. Pericardium/Pleural There is no pericardial effusion. Inferior Vena Cava Normal inferior vena cava with >50% collapse upon inspiration consistent with normal right atrial pressure, 5 mmHg. Aorta The aortic root size at the sinus of Valsalva is normal. Left Ventricular Outflow Tract Name Value Normal LVOT 2D LVOT Diameter 2.1 cm LVOT Doppler LVOT Peak Velocity 55 cm/s LVOT Peak Gradient 1 mmHg LVOT Mean Gradient 1 mmHg LVOT VTI 9 cm LVOT VTI/AV VTI Ratio 0.5 LVOT Stroke Volume 30 ml Pulmonic Valve Name Value Normal RVOT Doppler RVOT Peak Gradient 1 mmHg PV Doppler --------
--- NOTE | 2023-07-31 08:54 | PM.IMHP ---
H&P: HPI History of Present Illness Date/Time: 07/31/23 08:54 Chief Complaint: dyspnea and orthopnea Narrative: This is a 53-year-old male patient with a past medical history of anxiety and hypertension who presented to the emergency department yesterday with complaints dyspnea on exertion, orthopnea, and especially paroxysmal nocturnal dyspnea. patient reports that he has not taken his home medications in over a year because he missed some follow-up lab tests and did not re-established for ongoing refills. Patient reports he was previously on lisinopril 10 mg daily for hypertension. He has not been checking his blood pressure. Patient denies any IV drug use history denies smoking. Patient reports that he has had progressive dyspnea on exertion for about a month with significant worsening in the last 4 days prior to arrival. He reports fatigue increasing over that length of time as well. He also reports his anxiety increasing significantly. In the emergency department patient had a positive D-dimer and a CTA was completed no PE but it did show moderate pulmonary edema. There was also a question about a right lower lung obesity so he was given doses Rocephin and azithromycin. Renal function seems to have been affected slightly the creatinine at 1.33 BUN 19 with subsequent slight increase on a.m. labs this morning creatinine of 1.5. Patient did have proBNP 38569. Patient received diuresis and there was plan for transfer to [facility] for Cardiology but no beds were available. Patient was admitted to the floor and arrangements made for echocardiogram to be completed today at this facility. Patient reports some mild anterior chest discomfort / pain that has been present for over a month as well. EKG was completed in the emergency department does not appear acutely ischemic and patient had negative troponins. Review of Systems Review of Systems: All systems reviewed & are unremarkable except as noted in HPI and below [facility] Past Medical History Medical History (Updated 07/31/23 @ 15:25 by Max Kingsley APRN) Anxiety Depression Hyperlipemia Hypertension Pancreatitis Surgical History Surgical History History of bowel diversion surgery Family History Family History Father Heart disease Diabetes mellitus Mother Breast cancer Hypertension Social History Social History Smoking status: Never smoker Second hand tobacco smoke exposure: No Alcohol intake: never Substance use: never Substance use type: does not use Do You Feel Safe in your Home?: Yes Lack of Transportation: No Lack of Food: Never True Current Housing: I Have Housing Concerned About Future Housing: No Difficulty Paying Gas/Electric Bills: No Difficulty Paying for Meds: No Currently Unemployed: No Education: High School Diploma/GED Difficulty w/ Childcare or Family Care: No Gender identity (if verbalized by the patient): Male Sexual Orientation (if Verbalized by the Patient): Straight or Heterosexual Spiritual care concerns: No Meds Home Medications and Allergies Home Medications Medication Instructions Recorded Confirmed Type alprazolam 1 mg tablet 0.5 mg PO QID PRN Anxiety 01/05/20 07/30/23 History fluoxetine 40 mg capsule (Prozac) 80 mg PO DAILY 01/05/20 07/30/23 History zolpidem 10 mg tablet (Ambien) 10 mg PO HS 01/05/20 07/30/23 History lisinopril 10 mg tablet (Zestril) 10 mg PO DAILY 11/25/20 07/30/23 History pantoprazole 20 mg tablet,delayed 20 mg PO QAM #10 tabs 03/27/22 07/30/23 Rx release (Protonix) Allergies Allergy/AdvReac Type Severity Reaction Status Date / Time No Known Allergies Allergy Verified 07/30/23 10:45 Vital Signs Vital Signs - 24 hr 07/30/23 10:44 07/30/23 10:50 07/30/23 11:00 [place]
[2023-07-31] MEDS: METOPROLOL TARTRATE 25 MG TABLET PO ×2 (10:07→20:57)
[2023-07-31] MEDS: FUROSEMIDE INJ 20 MG/2 ML VIAL IV PUSH (10:07)
[2023-07-31] MEDS: FLUoxetine HCL 20 MG CAPSULE 80 MG PO (10:07)
[2023-07-31] MEDS: PANTOPRAZOLE SOD SESQUIHYDRATE 20 MG TAB PO (10:07)
[2023-07-31] MEDS: lisinopriL 10 MG TABLET PO (10:08)
[2023-07-31] MEDS: ONDANSETRON INJ 4 MG/2 ML VIAL IV PUSH (15:07)
[2023-07-31] MEDS: FUROSEMIDE INJ 20 MG/2 ML VIAL 40 MG IV PUSH (16:48)
[2023-07-31] MEDS: ACETAMINOPHEN 325 MG TABLET 650 MG PO (16:55)
[2023-07-31] MEDS: SACUBITRIL/VALSARTAN 49-51 MG TABLET 1 TABLET PO (20:57)
[2023-07-31] MEDS: ZOLPIDEM TARTRATE (*CRX) 5 MG TABLET 10 MG PO (20:58)
[2023-08-01] VITALS: BP 108/71; PULSE 66; PULSE 67; RESP 18; TEMP 36.6; O2SAT 98
[2023-08-01 03:25] VITALS: PULSE 65
[2023-08-01 05:26] LABS: Basophils Absolute Auto 0.06 K/mm3 (0.00-0.10); Basophils Percent Auto 0.4 % (0.0-1.0); Eosinophils Absolute Auto 0.17 K/mm3 (0.02-0.50); Eosinophils Percent Auto 1.2 % (1.0-6.0); Hematocrit 44.3 % (40.0-54.0); Immature Granulocyte Absolute 0.07 K/mm3 (0.00-0.00); Immature Granulocyte Percent A 0.5 % (0.0-0.0); Lymphocytes Absolute Auto 2.11 K/mm3 (1.10-4.50); Lymphocytes Percent Auto 14.5 % (18.0-42.0); Mean Corpuscular HGB Conc 31.6 g/dL (32-36); Mean Corpuscular Hemoglobin 27.5 pg (27.0-31.0); Mean Platelet Volume 9.3 fl (8.7-11.0); Monocytes Absolute Auto 0.98 K/mm3 (0.10-0.90); Monocytes Percent Auto 6.7 % (2.0-11.0); Neutrophils Absolute Auto 11.17 K/mm3 (1.70-7.20); Neutrophils Percent Auto 76.7 % (50.0-70.0); Platelet Count Result 460 K/mm3 (150-420); Red Blood Count 5.09 M/mm3 (4.70-6.10); Red Cell Distribution Width 14.6 % (11.6-14.4); White Blood Count 14.6 K/mm3 (4.8-10.8)
[2023-08-01 05:38] LABS: Anion Gap 11 mmol/L (8-16); Blood Urea Nitrogen 25 mg/dL (7-18); Calcium 8.8 mg/dL (8.5-10.1); Carbon Dioxide 29 mmol/L (21-32); Chloride 100 mmol/L (98-108); Estimated CRCL calculation 53 ml/min; Estimated Glomerular Filt Rate 51; Glucose 116 mg/dL (70-99); Magnesium 1.8 mg/dL (1.8-2.4); Osmolality Calculated 295 mOsm/kg (285-295); Potassium 3.6 mmol/L (3.5-5.1); Sodium 140 mmol/L (136-145)
[2023-08-01 07:30] VITALS: PULSE 68
[2023-08-01 08:00] VITALS: BP 113/79; PULSE 71; RESP 20; TEMP 36.1; O2SAT 96
--- NOTE | 2023-08-01 09:34 | PM.DS ---
DS: Admitting Diagnosis Discharge Date 08/01/2023 Admitting Diagnosis acute exacerbation of CHF, anxiety, hypertension, pneumonia DS: Discharge Diagnosis Discharge Diagnosis (1) Acute exacerbation of CHF (congestive heart failure): Qualifiers: Heart failure type: unspecified Qualified Code(s): I50.9 - Heart failure, unspecified Code(s): I50.9 - Heart failure, unspecified Status: Acute (2) Anxiety: Code(s): F41.9 - Anxiety disorder, unspecified Status: Acute (3) Hypertension: Code(s): I10 - Essential (primary) hypertension Status: Acute (4) Pneumonia: Qualifiers: Laterality: right Lung location: lower lobe of lung Pneumonia type: due to unspecified organism Qualified Code(s): J18.9 - Pneumonia, unspecified organism Code(s): J18.9 - Pneumonia, unspecified organism Status: Ruled-out DS: Summary Hospital Course Hospital Course: This is a 53-year-old male patient with past history of hypertension who is admitted to the hospital due to findings of pulmonary edema on CT scan the chest during workup for dyspnea and orthopnea. 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 Patient not on any medications for the last year and a half. He reports he had a known history has not been checking his blood pressure or taking medicine it. Initiated metoprolol and Entresto as well as furosemide for patient. He improved significantly after initiation these medications. Follow-up with primary care and Cardiology discussed. The importance of medication compliance discussed. Instructions on weighing himself, dietary and activity changes discussed and patient reports understanding. Status at Discharge Cognitive/behavioral status at discharge: Awake alert oriented pleasant somewhat anxious and dysthymic Functional status at discharge: independent ambulation Overall status at discharge: patient is progressing back to baseline Time Spent with Patient Time attestation: Total time spent providing and/or coordinating discharge services: 40 minutes Time spent: Greater than 30 minutes Exam Narrative: GENERAL: awake alert oriented no acute distress HEAD: Normocephalic, atraumatic. ENT:? Mucous membranes moist. CHEST: Clear to auscultation.? No respiratory distress. easy relaxed work of breathing. HEART: Regular rate and rhythm. ? Normal peripheral pulses. ABDOMEN: Soft, nontender, nondistended. EXTREMITIES: Normal range of motion. No peripheral edema. SKIN: Warm dry normal color NEURO: Alert and oriented x3. PSYCH: slightly anxious and dysthymic DS: Data Data Completed and Pending Completed studies during hospitalization: Chest x-ray, chest CTA, echocardiogram Labs on day of discharge: Labs from last 24 hours 08/01/23 04:57 WBC 14.6 H RBC 5.09 Hgb 14.0 Hct 44.3 MCV 87.0 MCH 27.5 MCHC 31.6 L RDW 14.6 H Plt Count 460 H MPV 9.3 Immature Gran % (Auto) 0.5 H Neut % (Auto) 76.7 H Lymph % (Auto) 14.5 L [place] % (Auto) 6.7 Eos % (Auto) 1.2 Baso % (Auto) 0.4 Lymph # (Auto) 2.11 [place] # (Auto) 0.98 H Eos # (Auto) 0.17 Baso # (Auto) 0.06 Abs Immat Gran (auto) 0.07 H Absolute Neuts (auto) 11.17 H Absolute Nucleated RBC 0.00 Nucleated RBC % 0.0 Sodium 140 Potassium 3.6 Chloride 100 Carbon Dioxide 29 Anion Gap 11 BUN 25 H Creatinine 1.44 H Estim Creat Clear Calc 53 Estimated GFR 51 L Glucose 116 H Calculated Osmolality 295 Calcium 8.8 Magnesium 1.8 Preliminary micro results at discharge 07/30/23 14:32 Blood Culture - Preliminary Blood 07/30/23 14:34 Blood Culture - Preliminary Blood Imaging Radiologist's impression: Exam Type: ? ? CA echo doppler color flow Study Info Complete two-dimensional, color flow and Doppler transthoracic echocardiogram is performed. Account #: ? ? [id number] Summary ? 1. Complete two-
[2023-08-01] MEDS: FLUoxetine HCL 20 MG CAPSULE 80 MG PO (10:06)
[2023-08-01] MEDS: PANTOPRAZOLE SOD SESQUIHYDRATE 20 MG TAB PO (10:06)
[2023-08-01 10:07] VITALS: PULSE 88
[2023-08-01] MEDS: SACUBITRIL/VALSARTAN 49-51 MG TABLET 1 TABLET PO (10:07)
[2023-08-01] MEDS: FUROSEMIDE INJ 20 MG/2 ML VIAL 40 MG IV PUSH (10:07)
[2023-08-01] MEDS: METOPROLOL SUCCINATE EXT REL 50 MG TABCR PO (10:07)
--- NOTE | 2023-08-01 13:42 | PC.NURSE ---
1240 pt completed lunch, ready for discharge. discharge instructions reviewed , page by page with pt. reviewed medications new rx, refills of current medications and stop medications , pt voiced understanding. 1249 pt departed facility via wheelchair with this conventional underwriter, mother and another female. pt out of wheelchair to drive self home in personal car. pt alert and oriented. no complaints. appreciative of all care.
--- NOTE | 2023-08-03 09:20 | PC.NURSE ---
Discharge call back attempted, no answer
--- NOTE | 2023-08-06 09:49 | PC.NURSE ---
Discharge call back attempted, not available per cell automatic message
--- NOTE | 2023-08-11 13:58 | PC.NURSE ---
Unable to reach for dc call back
== END 2023-08-01 12:49 | disposition home or self-care (01) ==
LOC: CHSED 19:58 → CHS2ND 20:26
PROVIDERS: Nurse Practitioner; Admitting Provider Internal Medicine; Emergency Provider Emergency Medicine; PCP Internal Medicine; Visit Provider Internal Medicine
DX: I11.0 Hypertensive heart disease with heart failure (principal); I50.41 Acute combined systolic (congestive) and diastolic (congestive) heart failure; I43 Cardiomyopathy in diseases classified elsewhere; Z91.148 Patient's other noncompliance with medication regimen for other reason; J18.9 Pneumonia, unspecified organism; R79.1 Abnormal coagulation profile; I08.1 Rheumatic disorders of both mitral and tricuspid valves; I27.20 Pulmonary hypertension, unspecified; Z20.822 Contact with and (suspected) exposure to COVID-19; R94.31 Abnormal electrocardiogram [ECG] [EKG]; F41.9 Anxiety disorder, unspecified; F32.A Depression, unspecified; E78.5 Hyperlipidemia, unspecified; F12.90 Cannabis use, unspecified, uncomplicated
CPT/HCPCS: 36415; 71045; 71275; 80048; 80053; 83605; 83735; 83880; 84484; 85025; 85380; 85610; 85730; 87040; 87637; 93005; 93306; 96365; 96367; 96374; 96375; 96376; 99285; A9270; G0378; G0379; J0456; J0696; J1940; J2405; Q9967